=== PATIENT | female | born 1990 | race Caucasian/White ===

== ENCOUNTER 2017-03-19 23:12 | Emergency (ER) | payer OTHER ==
[~2017-03-19 23:12] MED LIST: AZITHROMYCIN250 MG PO; BACTRIM DS TABL1 TA1 PO; DELTASONE20 MG PO; FIORICET1 TAB PO; HYDROCODONE/APA1 T16 PO; NO MEDICATIONS; PHENERGAN DM1 ML PO; PREDNISONE PO; ROBITUSSIN A-C S5 ML PO; ZITHROMAX PO
== END 2017-03-19 23:23 | disposition home or self-care (01) ==
LOC: SED 23:12
DX: N61.0 Mastitis without abscess (principal); F17.210 Nicotine dependence, cigarettes, uncomplicated; Z88.1 Allergy status to other antibiotic agents
CPT/HCPCS: 99282

== ENCOUNTER 2017-07-18 23:54 | Emergency (ER) | payer OTHER ==
[~2017-07-18] VITALS: Ht 160 cm; Wt 132.0 kg
--- NOTE | ~2017-07-18 | CR63 ---
[facility] A Service of [facility] & [facility] / [facility] RADIOLOGY TEXT RESULTS PATIENT: YUDITH GARCIA LOCATION: SED : 88 UNIT #: [id number] AGE: [address]: GUICHO ORO SEX: F ORDER DR: [id number] [address] [id number] MR#: [id number] Acc #: [id number] NAME: YUDITH GARCIA : 1990 SEX: F STUDY DATE/TIME: 07/19/2017 0:28 UNIT: SED ROOM: STUDY DESCRIPTION: CR Chest 2 View Attending Physician: Guicho Oro Ordering Physician: Guicho Oro Primary Care Physician: Toni Ibarra Aprn MEDICAL IMAGING REPORT This report is preliminary unless electronic signature is present. EXAM Chest x-ray, 07/19/2017 HISTORY 26-year-old female in the ED complaining of 1-week history of cough, congestion and wheezing. TECHNIQUE PA and lateral upright chest series FINDINGS The heart size and pulmonary vascularity are normal. The lungs are expanded and clear. No visible pulmonary infiltrate or pleural effusion. No change since 01/31/2016. IMPRESSION Negative chest. Dictated by... Dat Nolen M.D. THIS IS AN ELECTRONICALLY VERIFIED REPORT Dat Nolen M.D. at 07/19/2017 4:46 PM [place] TD: 07/19/2017 10:59 JOB #: [id number] MEDICAL IMAGING REPORT Page 1 of 1
== END 2017-07-19 01:45 | disposition home or self-care (01) ==
LOC: SED 23:54
DX: J01.80 Other acute sinusitis (principal); F17.210 Nicotine dependence, cigarettes, uncomplicated; Z88.0 Allergy status to penicillin
CPT/HCPCS: 71020; 84703; 87651; 94640; 99284